=== PATIENT | female | born 1950 | race Caucasian/White ===

== ENCOUNTER 2021-10-02 19:03 | Emergency (ER) | payer MEDICARE, OTHER ==
[~2021-10-02] VITALS: Ht 165.1 cm; Wt 68.0 kg
[2021-10-02 20:14] LABS: Basophils # (auto) 0.1 10 ^3/uL (0-0.2); Basophils % (auto) 1.1 % (0.0-2.0); Eosinophils # (auto) 0 10 ^3/uL (0-0.8); Eosinophils % (auto) 0.4 % (0.0-7.0); Hematocrit 38.7 % (36.0-46.0); Hemoglobin 13.5 g/dL (12.2-16.2); Lymphocytes % (auto) 12.3 % (10.0-50.0); Mean Corpuscular Hemoglobin 30.3 pg (28.0-32.0); Mean Corpuscular Hgb Conc. 34.9 g/dL (32.0-36.0); Mean Corpuscular Volume 86.9 fL (80.0-100.0); Monocytes # (auto) 0.4 10 ^3/uL (0-1.3); Monocytes % (auto) 5.3 % (0.0-12.0); Neutrophils # (auto) 6.5 10 ^3/uL (1.6-8.6); Neutrophils % (auto) 80.9 % (37.0-80.0); Red Blood Cells 4.45 10^6/uL (4.0-5.20); Red Cell Distribution Width 12.7 % (11.8-14.3); White Blood Cell 8.1 10^3/uL (4.4-10.8)
[2021-10-02 20:34] LABS: Albumin 3.7 g/dL (3.4-5.0); BUN/Creatinine Ratio 13.9; Calcium 9.4 mg/dL (8.5-10.1); Potassium 3.3 mmol/L (3.5-5.1)
[2021-10-02 20:37] LABS: Bilirubin, Total 1.2 mg/dL (0.2-1.0); Total Protein 7.8 g/dL (6.4-8.2)
[2021-10-02 21:22] VITALS: BP 127/54
[2021-10-02 22:15] LABS: Urine Amorphous Crystal FEW /hpf (None Seen); Urine Bacteria FEW /hpf (None Seen); Urine Blood TRACE /uL (Negative); Urine Hyaline Cast FEW /lpf (0 - 2); Urine Mucus FEW (None Seen); Urine Specific Gravity 1.024 (1.001-1.035); Urine WBC 172 /hpf (0 - 5)
[2021-10-02] MEDS ORDERED: CEPH-509 PO (22:25)
== END 2021-10-02 23:09 | disposition home or self-care (01) ==
LOC: EDBD 19:03 → ER 19:03
DX: R56.9 Unspecified convulsions (principal); N39.0 Urinary tract infection, site not specified; Z88.0 Allergy status to penicillin; Z88.1 Allergy status to other antibiotic agents
CPT/HCPCS: 36415; 70450; 80053; 81001; 85025; 93005

== ENCOUNTER 2021-12-23 15:03 | Inpatient (IN) | payer MEDICARE, OTHER ==
[~2021-12-23] VITALS: Ht 170.2 cm; Wt 57.2 kg
[~2021-12-23 15:03] MED LIST: CEPH-509 PO
[2021-12-23] MEDS ORDERED: LORazepam 2MG/ML-1ML VIAL IV ONE (17:00)
[2021-12-23 17:20] LABS: Basophils # (auto) 0.1 10 ^3/uL (0-0.2); Basophils % (auto) 0.3 % (0.0-2.0); Eosinophils # (auto) 0.1 10 ^3/uL (0-0.8); Eosinophils % (auto) 0.4 % (0.0-7.0); Hematocrit 44.4 % (36.0-46.0); Hemoglobin 14.2 g/dL (12.2-16.2); Lymphocytes # (auto) 3.6 10 ^3/uL (0.4-5.4); Lymphocytes % (auto) 18.1 % (10.0-50.0); Mean Corpuscular Hemoglobin 29.5 pg (28.0-32.0); Mean Corpuscular Hgb Conc. 31.9 g/dL (32.0-36.0); Mean Corpuscular Volume 92.4 fL (80.0-100.0); Monocytes # (auto) 0.9 10 ^3/uL (0-1.3); Monocytes % (auto) 4.5 % (0.0-12.0); Neutrophils # (auto) 15.2 10 ^3/uL (1.6-8.6); Neutrophils % (auto) 76.7 % (37.0-80.0); Red Cell Distribution Width 13.7 % (11.8-14.3); White Blood Cell 19.8 10^3/uL (4.4-10.8)
[2021-12-23 17:31] LABS: Albumin 3.9 g/dL (3.4-5.0); Calcium 9.3 mg/dL (8.5-10.1); Magnesium 2.4 mg/dL (1.6-2.6); Potassium 3.4 mmol/L (3.5-5.1)
[2021-12-23 17:37] LABS: BUN/Creatinine Ratio 20.8; Bilirubin, Total 1.3 mg/dL (0.2-1.0); Total Protein 7.7 g/dL (6.4-8.2)
[2021-12-23] MEDS ORDERED: DOCUSATE SOD 100 MG CAP PO PRN (18:45)
[2021-12-23] MEDS ORDERED: ACETAMINOPHEN 325 MG TAB PO PRN (18:45)
[2021-12-23] MEDS ORDERED: HYDROcodone-ACET 5/325MG TAB PO PRN (18:45)
[2021-12-23] MEDS ORDERED: ONDANSETRON HCL 4 MG/2 ML VIAL IV PRN (18:45)
[2021-12-23] MEDS ORDERED: MORPHINE SULFATE INJ 2 MG/ml SYRG IV PRN (18:45)
[2021-12-23] MEDS ORDERED: hydrALAZINE HCL 20 MG/ML VL IV PRN (19:00)
[2021-12-23 19:07] LABS: Urine Bacteria NONE SEEN /hpf (None Seen); Urine Blood Negative /uL (Negative); Urine Mucus FEW (None Seen); Urine Specific Gravity 1.022 (1.001-1.035); Urine Sperm PRESENT /hpf (None Seen); Urine WBC 83 /hpf (0 - 5); Urine WBC Clumps PRESENT /hpf (None Seen)
[2021-12-23] MEDS: SODIUM CHLORIDE 0.9% 1,000 ML IV SCH (20:30)
[2021-12-24 02:00] VITALS: BP 125/56
[2021-12-24 05:00] VITALS: BP 142/71
[2021-12-24] MEDS ORDERED: ATO40T PO (08:18)
[2021-12-24] MEDS: cefTRIAXone 1GM/50ML D5W 50 ML IV SCH (08:57)
[2021-12-24 09:00] VITALS: BP 151/63
[2021-12-24] MEDS ORDERED: MIDAZOLAM HCL 2MG/2ML 2ml VIAL (1mg/ml) IV PRN ×2 (10:00)
[2021-12-24] MEDS ORDERED: ENOXAPARIN SOD 40 MG/0.4 ML SYRINGE SC SCH (10:00)
[2021-12-24 10:04] LABS: Basophils # (auto) 0.1 10 ^3/uL (0-0.2); Basophils % (auto) 0.5 % (0.0-2.0); Eosinophils # (auto) 0.1 10 ^3/uL (0-0.8); Eosinophils % (auto) 0.5 % (0.0-7.0); Hematocrit 39.5 % (36.0-46.0); Hemoglobin 12.9 g/dL (12.2-16.2); Lymphocytes # (auto) 1.9 10 ^3/uL (0.4-5.4); Lymphocytes % (auto) 18.6 % (10.0-50.0); Mean Corpuscular Hemoglobin 29.3 pg (28.0-32.0); Mean Corpuscular Hgb Conc. 32.8 g/dL (32.0-36.0); Mean Corpuscular Volume 89.4 fL (80.0-100.0); Monocytes # (auto) 0.6 10 ^3/uL (0-1.3); Monocytes % (auto) 5.6 % (0.0-12.0); Neutrophils # (auto) 7.7 10 ^3/uL (1.6-8.6); Neutrophils % (auto) 74.8 % (37.0-80.0); Nucleated Red Blood Cells % 0.1 %; Red Blood Cells 4.42 10^6/uL (4.0-5.20); Red Cell Distribution Width 13.1 % (11.8-14.3); White Blood Cell 10.3 10^3/uL (4.4-10.8)
[2021-12-24 10:21] LABS: Albumin 3.3 g/dL (3.4-5.0); Calcium 8.7 mg/dL (8.5-10.1); Potassium 3.4 mmol/L (3.5-5.1)
[2021-12-24 10:24] LABS: Bilirubin, Total 1.7 mg/dL (0.2-1.0); Total Protein 6.9 g/dL (6.4-8.2)
[2021-12-24 10:27] LABS: Cholesterol 127 mg/dL (< 200); Triglycerides 66 mg/dL (< 150)
[2021-12-24 10:31] LABS: HDL Cholesterol 58 mg/dL (40-59); LDL Cholesterol 72 mg/dL (< 100)
[2021-12-24] MEDS: SODIUM CHLORIDE 0.9% 1,000 ML IV SCH (11:22)
[2021-12-24] MEDS: ASPirin 81 mg TAB PO SCH (11:55)
[2021-12-24 13:00] VITALS: BP 147/69
[2021-12-24] MEDS ORDERED: LISINOPRIL 10 MG TAB PO ONE (14:15)
[2021-12-24] MEDS ORDERED: POTASSIUM EFFERVESENT TAB 25 MEQ PO ONE (14:15)
[2021-12-24 17:00] VITALS: BP 154/71
[2021-12-24] MEDS: ATORVASTATIN 20 MG TAB PO SCH (21:16)
[2021-12-24 22:00] VITALS: BP 123/73
[2021-12-25] MEDS: SODIUM CHLORIDE 0.9% 1,000 ML IV SCH (04:05)
[2021-12-25 04:43] VITALS: BP 122/74
[2021-12-25 06:24] LABS: Potassium 3.9 mmol/L (3.5-5.1)
[2021-12-25 06:26] LABS: Basophils # (auto) 0.1 10 ^3/uL (0-0.2); Basophils % (auto) 0.6 % (0.0-2.0); Eosinophils # (auto) 0.1 10 ^3/uL (0-0.8); Eosinophils % (auto) 1.7 % (0.0-7.0); Hematocrit 38.7 % (36.0-46.0); Hemoglobin 13.3 g/dL (12.2-16.2); Lymphocytes # (auto) 2.3 10 ^3/uL (0.4-5.4); Lymphocytes % (auto) 26.3 % (10.0-50.0); Mean Corpuscular Hgb Conc. 34.3 g/dL (32.0-36.0); Mean Corpuscular Volume 87.6 fL (80.0-100.0); Monocytes # (auto) 0.6 10 ^3/uL (0-1.3); Neutrophils # (auto) 5.7 10 ^3/uL (1.6-8.6); Neutrophils % (auto) 64.4 % (37.0-80.0); Nucleated Red Blood Cells % 0.1 %; Red Blood Cells 4.42 10^6/uL (4.0-5.20); Red Cell Distribution Width 13.1 % (11.8-14.3); White Blood Cell 8.9 10^3/uL (4.4-10.8)
[2021-12-25 09:00] VITALS: BP 125/60
[2021-12-25] MEDS: ASPirin 81 mg TAB PO SCH (09:30)
[2021-12-25] MEDS: cefTRIAXone 1GM/50ML D5W 50 ML IV SCH (09:30)
[2021-12-25] MEDS: LISINOPRIL 10 MG TAB PO SCH (09:30)
[2021-12-25 13:00] VITALS: BP 112/55
[2021-12-25 17:00] VITALS: BP 132/60
[2021-12-25 22:00] VITALS: BP 121/61
[2021-12-25] MEDS: levETIRAcetam 500 MG TAB PO SCH (22:51)
[2021-12-25] MEDS: ATORVASTATIN 20 MG TAB PO SCH (22:51)
[2021-12-26 05:00] VITALS: BP 143/65
[2021-12-26 09:00] VITALS: BP 149/59
[2021-12-26] MEDS: cefTRIAXone 1GM/50ML D5W 50 ML IV SCH (09:17)
[2021-12-26] MEDS: levETIRAcetam 500 MG TAB PO SCH (09:18)
[2021-12-26] MEDS: ASPirin 81 mg TAB PO SCH (09:18)
[2021-12-26] MEDS: LISINOPRIL 10 MG TAB PO SCH (09:18)
[2021-12-26] MEDS ORDERED: KEP500T PO (11:35)
[2021-12-26] MEDS ORDERED: NITR-87 PO (11:35)
[2021-12-26 13:00] VITALS: BP 132/60
[2021-12-26 14:38] VITALS: BP 132/60
== END 2021-12-26 15:20 | disposition home or self-care (01) | DRG 872 ==
LOC: EDBD 15:03 → EDUNIT# 15:03 → ER 15:03 → TELE 18:38 → TELE-EAST 12-24 01:15
PROVIDERS: ADMIT Internal Medicine; ATTEND Internal Medicine
DX: A41.9 Sepsis, unspecified organism (principal); N39.0 Urinary tract infection, site not specified; E87.1 Hypo-osmolality and hyponatremia; I69.351 Hemiplegia and hemiparesis following cerebral infarction affecting right dominant side; R47.01 Aphasia; G40.401 Other generalized epilepsy and epileptic syndromes, not intractable, with status epilepticus; E78.5 Hyperlipidemia, unspecified; Z20.822 Contact with and (suspected) exposure to COVID-19; F41.9 Anxiety disorder, unspecified; I10 Essential (primary) hypertension; Z79.899 Other long term (current) drug therapy; Z82.49 Family history of ischemic heart disease and other diseases of the circulatory system; Z72.0 Tobacco use
CPT/HCPCS: 36415; 70450; 70551; 71045; 80048; 80053; 80061; 81001; 83735; 84484; 85025; 87086; 92610; 93005; 96365; 96375; 97163; G0378; J0696; J2250; J7060

== ENCOUNTER 2022-02-07 12:28 | Inpatient (IN) | payer MEDICARE, OTHER ==
[~2022-02-07] VITALS: Ht 160 cm; Wt 55.9 kg
[~2022-02-07 12:28] MED LIST changes: +ATO40T PO; +KEP500T PO; +NITR-87 PO
[2022-02-07] MEDS ORDERED: SODIUM CHLORIDE 0.9% 1,000 ML IV ONE (13:00)
[2022-02-07] MEDS ORDERED: LORazepam 2MG/ML-1ML VIAL IV ONE (13:00)
[2022-02-07 13:34] LABS: Basophils # (auto) 0.1 10 ^3/uL (0-0.2); Basophils % (auto) 0.6 % (0.0-2.0); Eosinophils # (auto) 0.1 10 ^3/uL (0-0.8); Eosinophils % (auto) 0.6 % (0.0-7.0); Hematocrit 44.6 % (36.0-46.0); Lymphocytes # (auto) 1.4 10 ^3/uL (0.4-5.4); Lymphocytes % (auto) 11.4 % (10.0-50.0); Mean Corpuscular Hgb Conc. 33.7 g/dL (32.0-36.0); Mean Corpuscular Volume 89.2 fL (80.0-100.0); Monocytes # (auto) 0.5 10 ^3/uL (0-1.3); Neutrophils % (auto) 83.4 % (37.0-80.0); Red Cell Distribution Width 13.2 % (11.8-14.3)
[2022-02-07 13:52] LABS: Albumin 3.7 g/dL (3.4-5.0); Calcium 8.9 mg/dL (8.5-10.1); Magnesium 2.4 mg/dL (1.6-2.6); Potassium 4.1 mmol/L (3.5-5.1)
[2022-02-07 13:57] LABS: BUN/Creatinine Ratio 19.7; Bilirubin, Total 1.4 mg/dL (0.2-1.0); Total Protein 7.6 g/dL (6.4-8.2)
[2022-02-07 16:09] LABS: Urine Bacteria FEW /hpf (None Seen); Urine Blood Negative /uL (Negative); Urine Hyaline Cast FEW /lpf (0 - 2); Urine Mucus FEW (None Seen); Urine Specific Gravity 1.016 (1.001-1.035); Urine WBC 10 /hpf (0 - 5)
[2022-02-07] MEDS ORDERED: cefTRIAXone 1GM/50ML D5W 50 ML IV ONE (16:45)
[2022-02-07] MEDS ORDERED: MORPHINE SULFATE INJ 2 MG/ml SYRG IV PRN (17:45)
[2022-02-07] MEDS ORDERED: NITROGLYCERIN 0.4 MG SL TAB SL PRN (17:45)
[2022-02-07] MEDS ORDERED: LORazepam 2MG/ML-1ML VIAL IV PRN (18:00)
[2022-02-07] MEDS ORDERED: levETIRAcetam 500 MG TAB PO SCH (22:00)
[2022-02-07] MEDS ORDERED: levETIRAcetam 500 MG TAB PO ONE (22:00)
[2022-02-07] MEDS ORDERED: levETIRAcetam 500 MG/5ML INJ IV ONE (22:46)
[2022-02-08 04:27] LABS: Basophils # (auto) 0 10 ^3/uL (0-0.2); Basophils % (auto) 0.3 % (0.0-2.0); Eosinophils # (auto) 0 10 ^3/uL (0-0.8); Eosinophils % (auto) 0.2 % (0.0-7.0); Hematocrit 38.6 % (36.0-46.0); Hemoglobin 13.6 g/dL (12.2-16.2); Lymphocytes # (auto) 2.2 10 ^3/uL (0.4-5.4); Lymphocytes % (auto) 14.4 % (10.0-50.0); Mean Corpuscular Hemoglobin 30.8 pg (28.0-32.0); Mean Corpuscular Hgb Conc. 35.1 g/dL (32.0-36.0); Mean Corpuscular Volume 87.7 fL (80.0-100.0); Monocytes # (auto) 0.8 10 ^3/uL (0-1.3); Monocytes % (auto) 5.6 % (0.0-12.0); Neutrophils % (auto) 79.5 % (37.0-80.0); Red Cell Distribution Width 13.1 % (11.8-14.3); White Blood Cell 15.1 10^3/uL (4.4-10.8)
[2022-02-08 04:41] LABS: Albumin 3.4 g/dL (3.4-5.0); Calcium 8.6 mg/dL (8.5-10.1); Potassium 3.7 mmol/L (3.5-5.1)
[2022-02-08 04:44] LABS: BUN/Creatinine Ratio 22.2
[2022-02-08 04:46] LABS: Bilirubin, Total 1.8 mg/dL (0.2-1.0); Total Protein 6.4 g/dL (6.4-8.2)
[2022-02-08] MEDS: cefTRIAXone 1GM/50ML D5W 50 ML IV SCH (09:06)
[2022-02-08] MEDS ORDERED: METO25TA93 PO (09:16)
[2022-02-08] MEDS ORDERED: KEP500T PO (09:16)
[2022-02-08] MEDS: ENOXAPARIN SOD 40 MG/0.4 ML SYRINGE SC SCH (10:21)
[2022-02-08 21:33] VITALS: BP 106/62
[2022-02-08 22:00] VITALS: BP 106/62
[2022-02-08] MEDS ORDERED: TEMAZEPAM 15 MG CAP PO ONE (22:30)
[2022-02-08] MEDS ORDERED: levETIRAcetam 500 MG/5ML INJ IV ONE (22:30)
[2022-02-09 05:02] VITALS: BP 119/75
[2022-02-09 08:00] VITALS: BP 115/58
[2022-02-09] MEDS: cefTRIAXone 1GM/50ML D5W 50 ML IV SCH (09:06)
[2022-02-09] MEDS: ENOXAPARIN SOD 40 MG/0.4 ML SYRINGE SC SCH (09:07)
[2022-02-09 10:23] LABS: Folate (Folic Acid) > 24.00 ng/mL (5.38-24)
[2022-02-09] MEDS ORDERED: LEVO500T31 PO (12:14)
[2022-02-09 12:55] VITALS: BP 126/54
[2022-02-09 12:58] VITALS: BP 126/54
== END 2022-02-09 14:00 | disposition home or self-care (01) | DRG 101 ==
LOC: EDBD 12:28 → ER 12:29 → TELE 17:43 → TELE-WESTW 02-08 21:10
PROVIDERS: ADMIT Registered Nurse; ATTEND Internal Medicine
DX: G40.409 Other generalized epilepsy and epileptic syndromes, not intractable, without status epilepticus (principal); I69.351 Hemiplegia and hemiparesis following cerebral infarction affecting right dominant side; N30.00 Acute cystitis without hematuria; R65.10 Systemic inflammatory response syndrome (SIRS) of non-infectious origin without acute organ dysfunction; I10 Essential (primary) hypertension; I69.398 Other sequelae of cerebral infarction; Z66 Do not resuscitate; Z96.1 Presence of intraocular lens; Z20.822 Contact with and (suspected) exposure to COVID-19; F03.90 Unspecified dementia, unspecified severity, without behavioral disturbance, psychotic disturbance, mood disturbance, and anxiety; Z88.1 Allergy status to other antibiotic agents; Z79.899 Other long term (current) drug therapy; Z88.0 Allergy status to penicillin; Z88.8 Allergy status to other drugs, medicaments and biological substances
CPT/HCPCS: 36415; 70450; 71045; 80053; 81001; 82140; 82542; 82607; 82746; 83735; 84443; 85025; 87086; 87426; 93005; 96361; 96365; 96375; G0378; J0696; J7060

== ENCOUNTER 2022-06-15 14:32 | Emergency (ER) | payer MEDICARE, OTHER ==
[~2022-06-15] VITALS: Ht 167.6 cm; Wt 59.0 kg
[~2022-06-15 14:32] MED LIST changes: -CEPH-509 PO; +LEVO500T31 PO; +METO25TA93 PO; -NITR-87 PO
[2022-06-15] MEDS ORDERED: SODIUM CHLORIDE 0.9% 1,000 ML IVB ONE (15:00)
[2022-06-15 15:34] LABS: Basophils # (auto) 0 10 ^3/uL (0-0.2); Basophils % (auto) 0.9 % (0.0-2.0); Eosinophils # (auto) 0.1 10 ^3/uL (0-0.8); Eosinophils % (auto) 2.8 % (0.0-7.0); Hematocrit 40.4 % (36.0-46.0); Hemoglobin 14.1 g/dL (12.2-16.2); Lymphocytes # (auto) 1.8 10 ^3/uL (0.4-5.4); Lymphocytes % (auto) 34.7 % (10.0-50.0); Mean Corpuscular Hgb Conc. 34.9 g/dL (32.0-36.0); Mean Corpuscular Volume 88.8 fL (80.0-100.0); Monocytes # (auto) 0.3 10 ^3/uL (0-1.3); Monocytes % (auto) 5.7 % (0.0-12.0); Neutrophils # (auto) 2.9 10 ^3/uL (1.6-8.6); Neutrophils % (auto) 55.9 % (37.0-80.0); Nucleated Red Blood Cells % 0.1 %; Red Blood Cells 4.55 10^6/uL (4.0-5.20); Red Cell Distribution Width 12.6 % (11.8-14.3); White Blood Cell 5.3 10^3/uL (4.4-10.8)
[2022-06-15 15:45] LABS: Albumin 3.9 g/dL (3.4-5.0); Calcium 9.5 mg/dL (8.5-10.1); Potassium 4.2 mmol/L (3.5-5.1)
[2022-06-15 15:50] LABS: Bilirubin, Total 1.6 mg/dL (0.2-1.0); Total Protein 7.5 g/dL (6.4-8.2)
[2022-06-15 19:05] LABS: Urine Bacteria FEW /hpf (None Seen); Urine Blood TRACE /uL (Negative); Urine Budding Yeast MODERATE /hpf (None Seen); Urine WBC 273 /hpf (0 - 5); Urine WBC Clumps PRESENT /hpf (None Seen)
[2022-06-15] MEDS ORDERED: CIPROFLOXACIN HCL 500 MG TAB PO ONE (20:00)
[2022-06-15] MEDS ORDERED: CIPR-173 PO (20:00)
[2022-06-15 20:45] VITALS: BP 144/66
== END 2022-06-15 20:52 | disposition home or self-care (01) ==
LOC: ER 14:32 → EDBD 14:32 → ER 20:52
DX: R56.9 Unspecified convulsions (principal); E78.5 Hyperlipidemia, unspecified; I10 Essential (primary) hypertension; Z86.73 Personal history of transient ischemic attack (TIA), and cerebral infarction without residual deficits
CPT/HCPCS: 36415; 70450; 80053; 81001; 85025; 99284; J1953; J7060

== ENCOUNTER 2023-01-21 17:00 | Emergency (ER) | payer MEDICARE, OTHER ==
[~2023-01-21] VITALS: Ht 167.6 cm; Wt 68.2 kg
[~2023-01-21 17:00] MED LIST changes: +CIPR-173 PO
[2023-01-21 17:45] VITALS: PULSE 103; RESP 18; O2SAT 96
[2023-01-21 19:39] VITALS: BP 127/63; TEMP 99.6
[2023-01-21 19:40] VITALS: PULSE 101; RESP 17; O2SAT 96
== END 2023-01-21 20:00 | disposition home or self-care (01) ==
LOC: ER 17:00 → EDBD 17:00 → ER 20:00
DX: G40.909 Epilepsy, unspecified, not intractable, without status epilepticus (principal); I10 Essential (primary) hypertension; E78.5 Hyperlipidemia, unspecified; Z86.73 Personal history of transient ischemic attack (TIA), and cerebral infarction without residual deficits; Z88.0 Allergy status to penicillin; Z88.8 Allergy status to other drugs, medicaments and biological substances; Z79.899 Other long term (current) drug therapy
CPT/HCPCS: 93005; 96374; 99284; J1953; J7060